=== PATIENT | male | born 1975 | race Caucasian/White ===

== ENCOUNTER 2019-12-03 11:09 | Emergency (ER) | payer MEDICAID, SELFPAY ==
--- NOTE | ~2019-12-03 | XR_ITS ---
EXAMINATION: XR chest 1V portable DATE: 12/03/2019 11:43 INDICATION: Drug overdose. TECHNIQUE: A single frontal view of the chest was obtained. COMPARISON: None. FINDINGS: There is mild atelectasis in the lower lung zones. No pleural effusion or pneumothorax. The heart size is normal. IMPRESSION: 1. Mild atelectasis in the lower lung zones. Reviewed, dictated and finalized at location A. [employer] LANGUAGES PROFESSOR
[2019-12-03 11:14] VITALS: BP 149/104; PULSE 108; RESP 18; TEMP 36.7; O2SAT 100
[2019-12-03 11:19] VITALS: RESP 18
--- NOTE | 2019-12-03 11:33 | ED.OVERDOSE ---
HPI - Overdose General Chief Complaint: Overdose Stated Complaint: unresponsive Time Seen by Provider: 12/03/19 11:23 Source: patient, EMS and RN notes reviewed Mode of arrival: EMS Limitations: no limitations History of Present Illness HPI Narrative: Pt is a 44 y/o male presenting to the ED via EMS c/o OD. Pt reports he relapsed on Fentanyl earlier today. Pt states there was not a stressor to trigger him choosing to OD again. Pt states he last used Opioids 18 months ago, and states he has Hx's of heroin and Methamphetamine use. Pt also reports chronic back pain, but denies CP, SI, N/V, or SOB. Pt denies other drug use or alcohol use earlier today. EMs state the pt became unresponsive for an unknown period of time, but has since become alert. Onset (ago): unknown Associated symptoms: other (Chronic back pain) Related Data Home Medications Medication Instructions Recorded Confirmed No Home Medications 12/03/19 12/03/19 Allergies Allergy/AdvReac Type Severity Reaction Status Date / Time No Known Allergies Allergy Verified 12/03/19 11:30 Review of Systems Review of Systems: Narrative: CARDIOVASCULAR: Denies chest pain. RESPIRATORY: Denies dyspnea. GASTROINTESTINAL: Denies nausea or vomiting. MUSCULOSKELETAL: Reports chronic back pain. NEUROLOGIC: Reports episode of unresponsiveness following use of fentanyl; denies any head trauma or numbness. PYSCHIATRIC: Denies Suicidal ideation. All systems reviewed & are unremarkable except as noted in HPI and below PMFSH Past Medical History Medical History No significant past medical history Surgical History Surgical History No significant past surgical history Social History Social History Substance use type: heroin, amphetamines and opiates Gender identity (if verbalized by the patient): Male Exam Narrative: Exam Narrative: GENERAL: Well-appearing, well-nourished, and in no acute distress. EYES: EOMI. NECK: Supple. CHEST: Clear to auscultation. No respiratory distress. HEART: Tachycardic with regular rhythm. No murmur heard. Normal peripheral pulses. ABDOMEN: Soft, nontender, nondistended, normal active bowel sounds. EXTREMITIES: Normal range of motion. No edema. SKIN: Warm, dry, no rash. NEURO: No focal deficits. Alert and oriented. EOMs intact without nystagmus. No facial droop/asymmetry noted bilaterally. Grimace intact. Intact sensation in face. Hearing intact bilaterally. Shoulder shrug intact. Strength 5/5 bilateral upper extremities. Strength 5/5 bilateral lower extremities. Reflexes 2+ patellar. Ambulatory with a narrow-based, steady gait. Course Course Emergency Course: Patient presented for evaluation following an overdose. Patient was given Narcan by EMS with resolution in his unresponsiveness. Patient arrived awake, alert and oriented without any complaint. IV access was obtained and labs are drawn. No leukocytosis or anemia. Mild NADER, likely prerenal. No evidence of aspiration on chest x-ray. Patient remained awake, alert, had no repeat episodes of decreased responsiveness requiring Narcan. Patient did not require Narcan drip. He did well with a period of observation of greater than 4 hours without any episodes of apnea or unresponsiveness. Patient had no suicidal or homicidal ideation. He continued to report that this was an unintentional overdose. Patient was then discharged home, advised to discontinue use of fentanyl. Vital Signs Vital signs: Vital Signs Temperature 36.7 C 12/03/19 11:14 Pulse Rate 108 H 12/03/19 11:14 Respiratory Rate 18 12/03/19 11:14 Blood Pressure 149/104 H 12/03/19 11:14 Pulse Oximetry 100 12/03/19 11:14 Temperature 36.7 C 12/03/19 11:14 Pulse Rate 108 H 12/03/19 14:11 Respiratory Rate 18 12/03/19 14:11 Blood Pressure 143/105 H 12/03/19 14:11 Pulse Oximetry 9
[2019-12-03] MEDS: ONDANSETRON INJ 4 MG/2 ML VIAL IV PUSH (11:46)
[2019-12-03] MEDS: SODIUM CHLORIDE 0.9% IV 1,000 ML 999 ML IV CONT (11:46)
[2019-12-03 11:47] LABS: Basophils Absolute Auto 0.1 K/mm3 (0.0-0.1); Basophils Percent Auto 0.7 % (0.2-1.2); Eosinophils Absolute Auto 0.2 K/mm3 (0-0.3); Eosinophils Percent Auto 2.7 % (0-4.4); Hematocrit 46.4 % (42.0-52.0); Hemoglobin 14.9 g/dL (14.0-18.0); Immature Granulocyte Absolute 0.23 K/mm3 (0.00-0.031); Immature Granulocyte Percent A 2.8 % (0-0.5); Lymphocytes Absolute Auto 1.89 K/mm3 (0.9-3.2); Lymphocytes Percent Auto 23.1 % (18.3-44.2); Mean Corpuscular HGB Conc 32.1 g/dl (32-36); Mean Corpuscular Hemoglobin 30.1 pg (26-34); Mean Corpuscular Volume 93.7 fl (80-100); Mean Platelet Volume 10.6 fl (7.4-10.4); Monocytes Absolute Auto 0.7 K/mm3 (0.1-0.6); Monocytes Percent Auto 8.8 % (2.6-8.5); Neutrophils Absolute Auto 5.1 K/mm3 (1.3-6.7); Neutrophils Percent Auto 61.9 % (45.5-73.1); Platelet Count Result 223 k/mm3 (150-375); Red Blood Count 4.95 M/mm3 (4.6-6.20); Red Cell Distribution Width 14.1 % (11.5-14.5); White Blood Count 8.2 K/mm3 (4.5-10.0)
[2019-12-03 11:59] LABS: Blood Urea Nitrogen 24 mg/dL (9-20); Calcium 9.2 mg/dL (8.4-10.2); Carbon Dioxide 30 mmol/L (22-30); Chloride 100 mmol/L (98-107); Estimated CRCL calculation 70 ml/min; Estimated Glomerular Filt Rate 55; Glucose 89 mg/dL (75-110); Potassium 3.9 mmol/L (3.4-5.0); Sodium 142 mmol/L (137-145)
--- NOTE | 2019-12-03 13:34 | ECG_ITS ---
Measurements Intervals [place] Rate: 103 P: 49 AK: 124 QRS: 43 QRSD: 104 T: 11 QT: 342 QTc: 449 Interpretive Statements SINUS TACHYCARDIA T WAVE ABNORMALITY IN ANTERIOR LEADS- CONSIDER ISCHEMIA BASELINE WANDER- V1, V3, V5 ABNORMAL ECG Electronically Signed On 12-03-2019 14:14:38 [employer]ASER SET UP OPERATOR by Paulie Martinez D.O.
[2019-12-03 14:11] VITALS: BP 143/105; PULSE 108; RESP 18; O2SAT 98
[2019-12-03 15:25] LABS: Barbiturate Screen Urine Negative (Negative); Benzodiazepines Screen Urine Negative (Negative)
[2019-12-03 15:30] LABS: Cannabinoid Screen Urine Negative (Negative); Cocaine Screen Urine Negative (Negative); Methadone Screen Urine Negative (Negative); Opiate Screen Urine Negative (Negative); Phencyclidine Screen Urine Negative (Negative)
[2019-12-03 15:37] LABS: Amphetamine Screen Urine Positive (Negative)
[2019-12-03 15:41] VITALS: BP 149/103; PULSE 112; RESP 18; O2SAT 95
--- NOTE | 2019-12-10 09:44 | PC.NURSE ---
LATE ENTRY This note is being entered to document information to the patient's record. The following information was omitted on [12/03/2019], by [ONESIMO Davis]. NS 1000mL infused with stop times of 1300.
== END 2019-12-03 15:42 | disposition home or self-care (01) ==
PROVIDERS: Emergency Provider Emergency Medicine
DX: T40.4X1A Poisoning by other synthetic narcotics, accidental (unintentional), initial encounter (principal); R91.8 Other nonspecific abnormal finding of lung field; R00.0 Tachycardia, unspecified; R94.31 Abnormal electrocardiogram [ECG] [EKG]
CPT/HCPCS: 36415; 71045; 80048; 80307; 85025; 93005; 96361; 96374; 99284; J2405; J7030